=== PATIENT | male | born 1995 ===

== ENCOUNTER 2018-11-07 17:45 | Emergency (ER) | payer OTHER ==
--- NOTE | 2018-11-07 18:05 | ED PDOC ---
Arrival/HPI - General Chief Complaint: Wound Check Time Seen by Provider: 11/07/18 17:53 Historian: Patient - History of Present Illness Narrative History of Present Illness (Text): 11/07/18 18:03 23 yo M presents for wound check, states that he had an incision and drainage a few days ago done here to his left groin area. Patient states that he just filled the prescription for antibiotics today and we will start to take it to day. He admits that he was referred to a urologist however did not make an appointment yet. He states that the wound looks much improved with decrease in redness and swelling. Otherwise reports no fever, chills, abdominal pain, nausea, vomiting, urinary symptoms. Past Medical History - Cardiac Hx Cardiac Disorders: No - Pulmonary Hx Respiratory Disorders: No - Neurological Hx Neurological Disorder: No - HEENT Hx HEENT Disorder: No - Renal Hx Renal Disorder: No - Endocrine/Metabolic Hx Endocrine Disorders: No - Hematological/Oncological Hx Blood Disorders: No - Integumentary Hx Dermatological Disorder: Yes Other/Comment: ABSCESS - Musculoskeletal/Rheumatological Hx Musculoskeletal Disorders: Yes Hx Fractures: Yes (fractured and right wrist) - Genitourinary/Gynecological Hx Genitourinary Disorders: No - Psychiatric Hx Psychophysiologic Disorder: Yes Hx Substance Use: Yes - Surgical History Hx Musculoskeletal Surgery: Yes (right wrist surgery) - Anesthesia Hx Anesthesia: Yes Hx Anesthesia Reactions: No Hx Malignant Hyperthermia: No Family/Social History Family/Social History: No Known Family HX Smoking Status: Light Smoker < 10 Cigarettes Daily Hx Alcohol Use: Yes Hx Substance Use: Yes Substance used: marijuana Allergies/Home Meds Allergies/Adverse Reactions: Allergies No Known Allergies Allergy (Verified 11/07/18 17:51) Home Medications: Home Meds Medication Instructions Recorded Confirmed No Known Home Med 08/08/16 08/08/16 Review of Systems - Review of Systems Constitutional: absent: Fatigue, Fevers Gastrointestinal: absent: Abdominal Pain, Nausea, Vomiting Genitourinary Male: absent: Dysuria, Frequency Musculoskeletal: absent: Arthralgias, Back Pain, Neck Pain, Joint Swelling Skin: Abscess. absent: Rash, Pruritis, Skin Lesions Physical Exam Vital Signs Temp Pulse Resp BP Pulse Ox 11/07/18 17:47 98.3 F 80 18 136/66 96 Temperature: Afebrile Blood Pressure: Normal Pulse: Regular Respiratory Rate: Normal Appearance: Positive for: Well-Appearing, Non-Toxic, Comfortable Pain Distress: None Mental Status: Positive for: Alert and Oriented X 3 - Systems Exam Abdomen: No: Tenderness, Distention, Rebound, Guarding Genitourinary Male: Present: Normal External Genitalia, Lesions (+3 non-tender round raised lesions measuring ~1 cm each in size), Other (+healing packed abscess to the L groin with mild surrounding induration and erythema, minimal yellow purulent d/c. 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 ). No: Testicle Tenderness, Penile Swelling Neurological: Present: GCS=15, CN II-XII Intact, Speech Normal, Motor Func Grossly Intact, Normal Sensory Function Skin: Present: Warm, Dry, Normal Color. No: Rashes Lymphatic: No: Inguinal Adenopathy Psychiatric: Present: Alert, Oriented x 3, Normal Insight, Normal Concentration Medical Decision Making ED Course and Treatment: 11/07/18 18:10 Wound packing removed, wound cleaned and dressed. Patient encouraged to take his antibiotics and given instructions on proper wound care. Advised to return to the emergency room if he has increasing redness and swelling to the groin area. Advised to follow up with Dr. Munguia in 1-2 days without fail. Advised to take medication as prescribed. Return to the emergency room at any time for any new or worsening symptoms. Patient states he fully agrees with and understands discharge instructions. States that he agrees with the plan and disposition. Verbalized and repeated discharge instructions and plan. I have given the patient opportunity to ask any additional questions. - PA / [employer] / Resident Statement MD/DO has reviewed & agrees with the documentation as recorded. Disposition/Present on Arrival - Present on Arrival Any Indicators Present on Arrival: No History of DVT/PE: No History of Uncontrolled Diabetes: No Urinary Catheter: No History of Decub. Ulcer: No History Surgical Site Infection Following: None - Disposition Have Diagnosis and Disposition been Completed?: Yes Diagnosis: Wound check, abscess Disposition: HOME/ ROUTINE Disposition Time: 18:00 Patient Plan: Discharge Condition: STABLE Discharge Instructions (ExitCare): Wound Care (DC) Additional Instructions: Thank you for letting us take care of you today. You were treated for wound check for I&D of abscess. The emergency medical care you received today was directed at your acute symptoms. Take antibiotics as prescribed. It may take several days for your symptoms to resolve. Return to the Emergency Department if your symptoms worsen, do not improve, or if you have any other problems. Please contact Dr. Munguia in 2 days for re-evaluation and follow up. Bring any paperwork you were given at discharge with you along with any medications you are taking to your follow up visit. Our treatment cannot replace ongoing medical care by a primary care provider (PCP) outside of the emergency department. Thank you for allowing the [facility] team to be part of your care today. Referrals: Shine Munguia MD [Staff Provider] - Follow up with primary Forms: [employer] ([place]an), WORK NOTE
[2018-11-07 18:16] VITALS: BP 136/66; PULSE 80; RESP 18; TEMP 98.3; O2SAT 96; BMI 22.1
== END 2018-11-07 18:23 | disposition home or self-care (01) ==
LOC: ED 17:45
DX: Z48.817 Encounter for surgical aftercare following surgery on the skin and subcutaneous tissue (principal)